=== PATIENT | male | born 1990 | race American Indian/Alaskan Native ===

== ENCOUNTER 2016-06-19 23:20 | Emergency (ER) | payer SELFPAY ==
[2016-06-19 23:41] VITALS: BP 133/99
== END 2016-06-20 | disposition left against medical advice (07) ==
LOC: ED 23:20
DX: S01.111A Laceration without foreign body of right eyelid and periocular area, initial encounter (principal); X58.XXXA Exposure to other specified factors, initial encounter; Y93.9 Activity, unspecified; Y92.89 Other specified places as the place of occurrence of the external cause; Y99.9 Unspecified external cause status; Z53.21 Procedure and treatment not carried out due to patient leaving prior to being seen by health care provider